=== PATIENT | female | born 1965 | race Caucasian/White ===

== ENCOUNTER 2021-01-06 14:30 | Emergency (ER) | payer MEDICAID ==
[~2021-01-06] VITALS: Ht 170.2 cm; Wt 91.0 kg
[2021-01-06] MEDS ORDERED: FAMOTIDINE 20MG/2ML VIAL IV STA (14:49)
[2021-01-06] MEDS ORDERED: ONDANSETRON HCL 4MG/2ML INJ IV STA (14:49)
[2021-01-06 15:51] LABS: BASOPHILS % 1.5 % (0.0-2.0); EOSINOPHILS % 2.7 % (0.0-5.0); HEMATOCRIT. 35.3 % (36.0-48.0); HEMOGLOBIN. 11.8 g/dL (12.0-16.0); LYMPHOCYTES % 30.5 % (20.0-50.0); MEAN CORPUSCULAR HEMOGLOBIN 27.3 pg (28.0-32.0); MEAN CORPUSCULAR VOLUME 81.5 fL (81.0-99.0); MEAN PLATELET VOLUME 7.1 fl (7.4-10.4); NEUTROPHILS % 58.3 % (40.0-76.0); PLATELET 451 x1000/uL (130-400); RED BLOOD CELL COUNT 4.33 mill/uL (4.2-5.4)
[2021-01-06 15:58] LABS: CHLORIDE 108 mEq/L (98-107)
[2021-01-06 16:02] LABS: ETHANOL BLOOD < 10 mg/dL
[2021-01-06 16:03] LABS: PROTHROMBIN TIME 10.3 sec (9.6-11.0)
[2021-01-06] MEDS ORDERED: SODIUM CHLORIDE 0.9% 1,000 ML IV ONE (16:45)
[2021-01-06 17:38] LABS: *AMPHETAMINES SCREEN URINE NEGATIVE (NEGATIVE); *BARBITURATES SCREEN URINE NEGATIVE (NEGATIVE); *BENZODIAZEPINES SCREEN URINE NEGATIVE (NEGATIVE); *COCAINE SCREEN URINE NEGATIVE (NEGATIVE); CANNABINOID URINE SCREEN NEGATIVE (NEGATIVE); METHADONE URINE SCREEN NEGATIVE (NEGATIVE); OPIATES URINE SCREEN NEGATIVE (NEGATIVE)
[2021-01-06 17:47] LABS: PHENCYCLIDINE URINE SCREEN NEGATIVE (NEGATIVE)
[2021-01-06 18:26] LABS: CLARITY URINE CLOUDY (CLEAR); COLOR URINE YELLOW (YELLOW); KETONES URINE TRACE (NEGATIVE); LEUKOCYTE ESTERASE URINE NEGATIVE (NEGATIVE); NITRITE URINE NEGATIVE (NEGATIVE); OCCULT BLOOD URINE 2+ (NEGATIVE); PROTEIN URINE 4+ (NEGATIVE); SPECIFIC GRAVITY URINE 1.028 (1.005-1.030); UROBILINOGEN URINE 0.2 E.U./dL (0.2-1.0)
[2021-01-06] MEDS ORDERED: METOCLOPRAMIDE HCL 10MG/2ML VIAL IV ONE (18:30)
[2021-01-06] MEDS ORDERED: POTASSIUM CHLORIDE 20MEQ/PACKET GT STA (18:40)
[2021-01-06] MEDS ORDERED: KCL 20MEQ/100ML PREMIX 100 ML IV ONE (18:45)
[2021-01-06] MEDS ORDERED: OMEP20CA14 MT (19:14)
[2021-01-06] MEDS ORDERED: ONDA4TAB5 MT (19:14)
[2021-01-06 20:38] VITALS: BP 146/70
== END 2021-01-06 21:18 | disposition home or self-care (01) ==
LOC: ER 14:30
DX: R10.13 Epigastric pain (principal); R11.2 Nausea with vomiting, unspecified; E11.9 Type 2 diabetes mellitus without complications; E78.00 Pure hypercholesterolemia, unspecified; I10 Essential (primary) hypertension; Z90.49 Acquired absence of other specified parts of digestive tract
CPT/HCPCS: 36415; 71045; 74176; 80053; 80305; 80320; 81003; 83690; 84484; 85025; 85610; 93005; 96361; 96374; 96375; 99285; J2405; J2765; J3480; J3490; J7030; Z7610; G0480

== ENCOUNTER 2022-06-13 07:47 | Inpatient (IN) | payer MEDICAID ==
[~2022-06-13] VITALS: Ht 157.5 cm; Wt 96.6 kg
[~2022-06-13 07:47] MED LIST: ASPI-1406 MT; BLOO-1465 MT; BLOO1KIT74 TP; HYDR100T26 PO; INSLIS SUBCUT; LABE300T3 PO; LANC-335 MC; LANC-493 TP; LEVO25TA7 PO; LEVO75TA MT; LOSA100T3 PO; NIFE-32 PO; OMEP20CA14 MT; SYRI-219 SQ
[2022-06-13 08:51] LABS: BASOPHILS % 1.1 % (0.0-2.0); EOSINOPHILS % 2.1 % (0.0-5.0); HEMATOCRIT. 31.6 % (36.0-48.0); HEMOGLOBIN. 10.2 g/dL (12.0-16.0); LYMPHOCYTES % 17.4 % (20.0-50.0); MEAN CORPUSCULAR HEMOGLOBIN 27.6 pg (28.0-32.0); MEAN CORPUSCULAR VOLUME 85.7 fL (81.0-99.0); MEAN PLATELET VOLUME 7.3 fl (7.4-10.4); MONOCYTES % 9.3 % (2.0-8.0); NEUTROPHILS % 70.1 % (40.0-76.0); PLATELET 384 x1000/uL (130-400); RED BLOOD CELL COUNT 3.69 mill/uL (4.2-5.4); RED CELL DISTRIBUTION WIDTH 16.5 % (11.6-14.6)
[2022-06-13 08:58] LABS: CHLORIDE 100 mEq/L (98-107)
[2022-06-13] MEDS ORDERED: MORPHINE SULFATE 4 MG/ML CPJ (NOT FOR IM USE) IV ONE (09:15)
[2022-06-13] MEDS ORDERED: HYDRALAZINE 20MG/ML VIAL IV ONE (11:15)
[2022-06-13] MEDS ORDERED: MORPHINE SULFATE 2 MG/ML CPJ (NOT FOR IM USE) IV PRN ×2 (13:30→17:45)
[2022-06-13] MEDS ORDERED: ONDANSETRON HCL 4MG/2ML INJ IV PRN ×2 (13:30→17:45)
[2022-06-13] MEDS ORDERED: NALOXONE HCL 0.4MG/ML VIAL IV PRN (13:30)
[2022-06-13] MEDS ORDERED: HYDROCODONE/ACETAMINOPHEN 5/325MG TABLET PO PRN (17:45)
[2022-06-13] MEDS ORDERED: ACETAMINOPHEN 650MG/20.3ML UDC GT PRN (17:45)
[2022-06-13] MEDS ORDERED: IPRATROPIUM/ALBUTEROL 0.5-3(2.5)MG/3ML NEB NEB PRN (17:45)
[2022-06-13] MEDS: LISINOPRIL 10MG TABLET PO SCH (17:45)
[2022-06-13] MEDS ORDERED: GUAIFENESIN 200MG/10ML SUGAR FREE UDC PO PRN (17:45)
[2022-06-13] MEDS: ENOXAPARIN 40MG/0.4ML SYR SUBCUT SCH (17:47)
[2022-06-13] MEDS: CLONIDINE 0.1MG TABLET PO SCH (23:24)
[2022-06-13 23:30] LABS: CREATINE KINASE MB FRACTION 8.4 ng/mL (0.5-3.6)
[2022-06-14] MEDS: HYDRALAZINE 20MG/ML VIAL IV PRN ×2 (00:16→10:15)
[2022-06-14 07:01] LABS: BASOPHILS % 0.9 % (0.0-2.0); EOSINOPHILS % 0.3 % (0.0-5.0); HEMATOCRIT. 29.7 % (36.0-48.0); HEMOGLOBIN. 9.8 g/dL (12.0-16.0); LYMPHOCYTES % 14.9 % (20.0-50.0); MEAN CORPUSCULAR HEMOGLOBIN 27.9 pg (28.0-32.0); MEAN CORPUSCULAR VOLUME 84.9 fL (81.0-99.0); MEAN PLATELET VOLUME 7.6 fl (7.4-10.4); MONOCYTES % 7.5 % (2.0-8.0); NEUTROPHILS % 76.4 % (40.0-76.0); PLATELET 390 x1000/uL (130-400); RED CELL DISTRIBUTION WIDTH 16.2 % (11.6-14.6)
[2022-06-14 07:02] LABS: CREATINE KINASE MB FRACTION 7.1 ng/mL (0.5-3.6)
[2022-06-14] MEDS: CLONIDINE 0.1MG TABLET PO SCH ×3 (09:06→18:00)
[2022-06-14] MEDS: LISINOPRIL 10MG TABLET PO SCH ×2 (09:06→20:56)
[2022-06-14] MEDS: ASPIRIN 81MG EC TABLET PO SCH (09:06)
[2022-06-14 13:42] VITALS: BP 191/91
[2022-06-14] MEDS: NIFEDIPINE XL 60MG TAB PO SCH (14:05)
[2022-06-14] MEDS: ENOXAPARIN 40MG/0.4ML SYR SUBCUT SCH (18:01)
[2022-06-14 20:00] VITALS: BP 150/74
[2022-06-14] MEDS: LABETALOL HCL 300MG TABLET PO SCH (20:56)
[2022-06-15] VITALS: BP 107/62
[2022-06-15] MEDS ORDERED: DEXTROSE 50% WATER 50ML SYRINGE IV PRN
[2022-06-15 04:00] VITALS: BP 140/63
[2022-06-15] MEDS: BLOOD SUGAR DIAGNOSTIC STRIP TEST SCH ×2 (06:22→12:20)
[2022-06-15] MEDS: INSULIN LISPRO 100 UNITS/ML SUBCUT SCH ×2 (07:47→14:57)
[2022-06-15 08:00] VITALS: BP 161/71
[2022-06-15] MEDS: LABETALOL HCL 300MG TABLET PO SCH (09:55)
[2022-06-15] MEDS: ASPIRIN 81MG EC TABLET PO SCH (09:55)
[2022-06-15] MEDS: NIFEDIPINE XL 60MG TAB PO SCH (09:56)
[2022-06-15] MEDS: CLONIDINE 0.1MG TABLET PO SCH ×2 (09:56→14:21)
[2022-06-15] MEDS: LISINOPRIL 10MG TABLET PO SCH (11:06)
[2022-06-15 12:00] VITALS: BP 153/72
[2022-06-15 16:00] VITALS: BP 128/64
[2022-06-15 17:32] VITALS: BP 128/64
== END 2022-06-15 19:06 | disposition home or self-care (01) | DRG 199 ==
LOC: ER 07:56 → 8WST 10:10 → ENRESERV 18:24 → MICUSO 06-14 04:33 → 6WST 06-14 13:28
PROVIDERS: ADMIT Internal Medicine Nephrology; ATTEND Internal Medicine Nephrology
PROC: 3E1M39Z Irrigation of Peritoneal Cavity using Dialysate, Percutaneous Approach (ICD-10-PCS; principal; 2022-06-14)
DX: I16.0 Hypertensive urgency (principal); I50.33 Acute on chronic diastolic (congestive) heart failure; E43 Unspecified severe protein-calorie malnutrition; N18.6 End stage renal disease; E11.22 Type 2 diabetes mellitus with diabetic chronic kidney disease; D64.9 Anemia, unspecified; R07.89 Other chest pain; I13.2 Hypertensive heart and chronic kidney disease with heart failure and with stage 5 chronic kidney disease, or end stage renal disease; Z68.39 Body mass index [BMI] 39.0-39.9, adult; Z91.14 Patient's other noncompliance with medication regimen; Z99.2 Dependence on renal dialysis; Z79.82 Long term (current) use of aspirin; Z79.4 Long term (current) use of insulin; Z79.899 Other long term (current) drug therapy; Z90.49 Acquired absence of other specified parts of digestive tract
CPT/HCPCS: 36415; 71045; 80048; 80053; 82550; 82553; 82962; 83036; 83735; 83880; 84484; 85025; 93005; 99285; J0360; J1650; J1815; J2270; J2405